=== PATIENT | female | born 1980 | race Two or more races ===

== ENCOUNTER 2024-07-23 11:37 | Emergency (ER) | payer MEDICAID, SELFPAY ==
[2024-07-23 11:43] VITALS: BP 120/83; PULSE 90; RESP 16; TEMP 37.1; O2SAT 99; BMI 36.6
--- NOTE | 2024-07-23 11:48 | XR_ITS ---
Examination: CT abdomen with intravenous contrast CT pelvis with intravenous contrast 2-D coronal reconstructions 2-D sagittal reconstructions Date and time of exam:July 23, 2024 1414 hours INDICATIONS: Right-sided flank pain beginning 2 days ago. CTDI: vol (mGy) 15.1 DLP: (mGycm) 835 Technique: Multiple axial sections of the abdomen and pelvis have been obtained. 64 slice high-resolution scanner used. 3 mm axial sections have been obtained, post intravenous injection 60 cc [id number] 2-D sagittal, coronal reconstructions obtained. Low dose protocols were performed. One or more of the following dose reduction techniques were used; automated exposure control, adjustment of the mA and/or KV according to patient size, use of iterative reconstruction technique. Findings: Diffuse fatty infiltration throughout the liver, no focal liver or splenic lesions No gallstones No pancreatic or adrenal mass. No renal or ureteral calculi, no hydronephrosis Aorta normal size 13 mm fat-containing umbilical hernia Normal appendix Retroverted uterus No bladder mass or bladder calculi Moderate distention posteriorly L5-S1 IMPRESSION: No renal or ureteral calculi, no hydronephrosis No bladder mass or bladder calculi Normal appendix
--- NOTE | 2024-07-23 11:48 | PD.EDRME ---
Rapid Medical Screening Exam RME Arrival date/time: 07/23/24 11:37 43-year-old female presents to the emergency department for complaint of right lower quadrant abdominal pain Chief Complaint: Abdominal Pain Time Seen by Provider: 07/23/24 11:43 Vital signs: Vital Signs Temperature 98.7 F 07/23/24 11:43 Pulse Rate 90 07/23/24 11:43 Respiratory Rate 16 07/23/24 11:43 Blood Pressure 120/83 07/23/24 11:43 Pulse Oximetry (%) 99 07/23/24 11:43 Oxygen Delivery Method Room Air 07/23/24 11:43
[2024-07-23 12:02] LABS: Basophils % (Auto) 0 % (0-2.5); Eosinophils # (Auto) 0.1 Thou/mm3 (0.0-0.5); Eosinophils % (Auto) 1 % (0-10); Hematocrit 36.3 % (36.0-46.0); Hemoglobin 11.6 g/dL (12.0-16.0); Immature Granulocytes % (Auto) 1 % (0-0); Immature Granulocytes Auto 0.05 Thou/mm3 (0.00-0.00); Lymphocytes # (Auto) 2.3 Thou/mm3 (1.0-4.8); Lymphocytes % (Auto) 22 % (10-50); Mean Corpuscular Hemoglobin 26.9 pg (25.0-35.0); Mean Corpuscular Volume 84 fL (80-100); Monocytes # (Auto) 0.7 Thou/mm3 (0.0-0.8); Monocytes % (Auto) 7 % (0-12); Neutrophils # (Auto) 7.2 Thou/mm3 (1.8-7.7); Neutrophils % (Auto) 70 % (37-80); Nucleated Red Blood Cell % 0 /100 WBC (0); Platelet Count 417 Thou/mm3 (140-440); RDW Standard Deviation 46.6 fL (36.4-46.3); Red Blood Count 4.32 Miln/mm3 (4.00-5.20); White Blood Count 10.3 Thou/mm3 (3.6-11.0)
[2024-07-23 12:22] LABS: Collection Type, Urine Clean Catch
[2024-07-23 12:23] LABS: Alanine Aminotransferase 23 U/L (10-49); Albumin, Serum 4.5 gm/dL (3.5-5.0); Albumin/Globulin Ratio 1.6 (1.2-2.2); Alkaline Phosphatase 73 U/L (46-116); Anion Gap 9 (7-16); Aspartate Amino Transferase 20 U/L (0-34); BUN/Creatinine Ratio 14 Ratio (12-20); Bilirubin,Total 1.2 mg/dL (0.3-1.2); Blood Urea Nitrogen 10 mg/dL (9-23); Calcium 8.9 mg/dL (8.3-10.6); Calcium (Corrected) 8.9 mg/dL (8.5-10.1); Carbon Dioxide 26.9 mMol/L (20.0-31.0); Chloride 105 mMol/L (98-107); Creatinine (Component) 0.7 mg/dL (0.6-1.3); Estimated Creatinine Clearance 108.6 mL/min (>60); Globulin 2.8 gm/dL (2.3-3.5); Glucose 92 mg/dL (74-106); Lipase 26 U/L (12-53); Osmolality,Calculated 280 (275-295); Potassium 3.9 mMol/L (3.4-5.1); Sodium 141 mMol/L (136-145); Total Protein 7.3 gm/dL (5.7-8.2); eGFR > 60 See Note
[2024-07-23 12:38] LABS: Bacteria,Urine Rare; Bilirubin,Urine Negative (Negative); Blood,Urine Negative (Negative); Clarity,Urine Clear (Clear/Hazy); Color,Urine Yellow (Lt Yel-Yel); Culture Indicated,Urine Not Indicated; Glucose, Urine Negative (Negative); HCG Qualitative,Urine Negative; Ketones,Urine Trace (Negative); Leukocyte Esterase,Urine Negative (Negative); Nitrite,Urine Negative (Negative); Protein,Urine Trace (Neg - Trace); RBC,Urine 3 /hpf (0-3); Specific Gravity,Urine 1.031 (1.001-1.035); Squamous Epithelial Cell,Urine 4 /hpf (0-5); Urobilinogen,Urine Negative mg/dL (0.0-1.0); WBC,Urine 1 /hpf (0-5)
--- NOTE | 2024-07-23 14:56 | PD.EDABDPN ---
ED Abdominal Pain RME/HPI General Chief Complaint: Abdominal Pain Stated complaint: RLQ ABD PAIN Time seen by provider: 07/23/24 11:43 Arrival date/time: 07/23/24 11:37 RME / HPI RME / HPI narrative: 43-year-old female presents to the emergency department for complaint of right lower quadrant abdominal pain. This been ongoing for the last 2 days, described as dull ache, it comes and goes. Denies any fever vomiting diarrhea constipation. Was seen by PCP and was advised to come here to rule out appendicitis. Denies any other complaints. Related Data Previous Rx's ?Medication ?Instructions ?Recorded dicyclomine 20 mg tablet 20 mg PO TID PRN abdominal pain 07/23/24 #30 tabs Allergies Allergy/AdvReac Type Severity Reaction Status Date / Time No Known Allergies Allergy Unknown Verified 07/04/16 13:19 Review of Systems Review of Systems Narrative Review of Systems: Review of system reviewed and within normal limits except mentioned in HPI ED Exam Narrative Physical exam: VITAL SIGNS: Reviewed. GENERAL APPEARANCE: Alert and interactive, follows commands, no acute distress, HEAD AND FACE: Non-traumatic. ENT: PERRL, pink conjunctivitis, eyelid no trauma, Mucous membrane moist. NECK: Supple, nontender, no nuchal rigidity. CHEST: No tenderness, no crepitus, no paradoxical movement, no retractions. LUNGS: Clear, well ventilated, symmetric, no rales, no wheezing, no ronchi, no stridor, good breath sounds bilaterally. HEART: Regular rate, regular rhythm, no murmur, no gallops. ABDOMEN: Soft, positive bowel sounds, nondistended, no guarding, right lower quadrant tenderness, no rebound, no masses, RECTAL: Deferred. GENITAL: Deferred. NEUROLOGICAL: Gross motor function intact sensory function intact, Appropriate for age. MUSCULOSKELETAL: low back nontender, full range of motion. EXTREMITIES: Nontender, full range of motion. SKIN: Color pink, dry, no rash, no lacerations, no abrasions, no contusions. LYMPHATICS: Deferred. Course Quality Measures none Orders Category Date Time Status CT Screening NOW Care 07/23/24 11:48 Active Insert IV NOW Care 07/23/24 11:[address] abdomen pelvis w con Stat Exams 07/23/24 11:48 Completed CBC Stat Lab 07/23/24 11:56 Completed Comprehensive Metabolic Panel Stat Lab 07/23/24 11:56 Completed HCG Qualitative,Urine Stat Lab 07/23/24 12:06 Completed Lipase Stat Lab 07/23/24 11:56 Completed UA, C/S IF [Urinalysis, C/S if Indicated] Stat Lab 07/23/24 12:06 Completed Vital Signs Vital signs: Vital Signs Temperature 98.7 F 07/23/24 11:43 Pulse Rate 90 07/23/24 11:43 Respiratory Rate 16 07/23/24 11:43 Blood Pressure 120/83 07/23/24 11:43 Pulse Oximetry (%) 99 07/23/24 11:43 Oxygen Delivery Method Room Air 07/23/24 11:43 Abdominal Pain MDM MDM Narrative MDM Narrative:: 43-year-old female presents to the emergency department for complaint of right lower quadrant abdominal pain. This been ongoing for the last 2 days, described as dull ache, it comes and goes. Denies any fever vomiting diarrhea constipation. Was seen by PCP and was advised to come here to rule out appendicitis. Denies any other complaints. Patient's workup today all came back normal including normal urinalysis. CT scan of the abdomen also came back unremarkable. Results discussed with the patient and family. Patient appears nontoxic and hemodynamically stable. Patient discharged home and instructed to follow-up with primary care provider in 24 to 48 hours. Instructed to return to the emergency department immediately if worsening of symptoms Patient data External records reviewed:: None Clinical information provided by:: none Social determinants that could affect healthcare access:: none Patient has the following chronic illnesses:: None How is presenting disease/condition affected by chronic disease/condition?: no chronic disease Evaluation data The following diagnostics were reviewed and interpreted by me:: lab results and radiology exam(s) Lab and/or radiology exams considered but not ordered:: None Interpretation Summary: None Medications / Prescriptions Medications or Prescriptions considered but not ordered:: None Medication administrations:: None Consultations Consultation(s) initiated? (list below): No Diagnosis Differential diagnosis abdominal pain: abdominal pain, acute appendicitis and constipation Most likely diagnosis given after review of the tests above:: Abdominal pain Admission Indicated Admission indicated?: not indicated Admission Request Was there a request for admission?: No Disposition Plan Disposition Plan: Discharge Discharge Attestation Discharge Attestation: The patient and all family members were given an opportunity to ask questions and understood the discharge instructions. Discharge instructions specifically effects, indications for sooner follow up or return to the emergency department, and the expected course of current diagnosis. Patient condition: Stable Discharge Plan Plan Patient Disposition: HOME (Self Care) Disposition Comment: stable Prescriptions/Referrals Prescriptions/Med Rec: New dicyclomine 20 mg tablet 20 mg PO TID PRN (Reason: abdominal pain) Qty: 30 0RF Referrals: Apollo Chavarria MD [Primary Care Provider] - In 1 week Problem List Clinical Impression: Abdominal pain Patient/Caregiver Discharge Instructions Discharge Activity: activity as tolerated Education Materials: Abdominal Pain Additional Instructions: Thank you for the opportunity for serving you today. You are stable for discharged . You are advised to: Follow-up with your PCP in 1 to 2 days Return to ED for worsening of symptoms Increase oral fluids Take medication as prescribed Print Language: Indonesian Stand Alone Forms: Susanna Award Info., Patient Portal Info Letter
== END 2024-07-23 15:14 | disposition home or self-care (01) ==
PROVIDERS: Nurse Practitioner Primary Care; Emergency Provider Emergency Medicine; PCP Family Medicine
DX: R10.31 Right lower quadrant pain (principal)
CPT/HCPCS: 36415; 74177; 80053; 81001; 81025; 83690; 85025; 99285; A4649; Q9967